=== PATIENT | male | born 1965 | race Caucasian/White ===

== ENCOUNTER 2023-05-08 09:25 | Emergency (ER) | payer OTHER, SELFPAY ==
[2023-05-08 09:26] VITALS: BP 154/88; PULSE 83; RESP 18; TEMP 36.1; O2SAT 98; BMI 29.7
--- NOTE | 2023-05-08 09:55 | EDS_ITS ---
HPI History of Present Illness Chief Complaint: Abd Pain Informant: patient Onset/Context/Timing Onset: Weeks Context: Gradual Onset Timing: Waxes and wanes Current Severity: Moderate Maximum Severity: Moderate Narrative Narrative: Under the left lower quadrant abdominal pain. Pain has been gradual in onset and waxing and waning for the past couple weeks. He is also been dealing with chronic back pain. In regards to his abdominal pain he points to the left lower quadrant. He has had some chills. He does report a slight change in his stool. No known history of diverticulitis, but also states he has never had a colonoscopy. [facility] Medical History (Updated 05/08/23 @ 14:[address] Shagufta Whitaker MD) Chronic back pain Hypertension Medical History no medical history Home Medications amoxicillin 875 mg-potassium clavulanate 125 mg tablet 1 tab PO Q12H #14 tabs 04/25/21 [Rx Last Taken Unknown] oxycodone-acetaminophen 5 mg-325 mg tablet (Percocet) 1 tab PO Q8H PRN pain 3 days #12 tabs 05/08/23 [Rx Last Taken Unknown] Allergy/AdvReac Type Severity Reaction Status Date / Time No Known Allergies Allergy Verified 05/08/23 09:25 Family History no significant family his Surgical History no surgical history Social History Smoking Status: Never smoker ROS ROS ED Constitutional Constitutional ED: Reports chills; Denies fever(s) Eyes Eyes: Denies change in vision or discharge from eye(s) ENT ENT ED: Denies discharge from eye(s), rhinorrhea or sore throat Cardiovascular Cardiovascular: Denies chest pain or palpitations Respiratory/Chest Respiratory/Chest: Denies cough or dyspnea Gastrointestinal Gastrointestinal: Reports abdominal pain; Denies diarrhea, nausea or vomiting Genitourinary Genitourinary ED: Denies difficulty urinating, dysuria or hematuria Musculoskeletal Musculoskeletal: Reports back pain; Denies extremity pain Integumentary Denies Abrasions or rash Neurologic Neurologic: Denies headache(s) or weakness Allergic/Immunologic Allergic/Immunologic ED: Denies lip swelling or urticaria EXAM Physical Exam Const Vital Signs: 05/08/23 09:26 05/08/23 13:25 Temperature 96.9 F L Temperature Source Temporal Pulse Rate 83 74 Respiratory Rate 18 15 Blood Pressure 154/88 H 148/97 H Blood Pressure Mean 110 114 Pulse Ox 98 98 Oxygen Delivery Method Room Air Room Air Positive well nourished and well developed General Appearance ED: well developed HEENT Reports moist mucous membranes Eyes EOMs intact bilaterally Chest Wall inspection of chest normal and palpation of chest normal Resp normal respiratory effort and clear to auscultation bilaterally Cardio regular rate and regular rhythm GI GI Narrative: Moderate tenderness in left lower quadrant. No guarding or rebound. Hypoactive but present bowel sounds are noted. Extremity normal to inspection Neuro oriented x3 and no sensory deficits noted Motor Exam: strength 5/5 throughout Psych mental status grossly normal Skin no rashes or lesions noted MDM MDM MDM Narrative Medical decision making narrative: Patient declines anything for pain at this time. He is given IV fluids. Labwork obtained to evaluate for leukocytosis, anemia, and electrolyte derangement. Urinalysis obtained to evaluate for infection/hematuria. I did review report from a noncontrast CT patient had performed in [place] a couple weeks ago. There is no evidence of renal stone noted. In light of this diverticulitis is higher on my differential list and we will do a CT scan with p.o. and IV contrast to further evaluate this. Lab Data Attestation: I reviewed the patient's lab results. Labs: Laboratory Results - last 24 hr 05/08/23 05/08/23 10:29 10:32 WBC 5.8 RBC 4.52 L Hgb 14.1 Hct 42.5 MCV 94.0 MCH 31.2 MCHC 33.2 RDW Std Deviation 44.0 H RDW Coeff of Gemma 12.9 Plt Count 234 MPV 8.8 Immature Gran % (Auto) 0.900 Neut % (Auto) 71.0 H Lymph % (Auto) 18.3 L Russell % (Auto) 6.9 Eos % (Auto) 2.6 Baso % (Auto) 0.3 Absolute Neuts (auto) 4.1 Absolute Lymphs (auto) 1.06 Nucleated RBC % 0 Sodium 137 Potassium 3.9 Chloride 103 Carbon Dioxide 30.0 Anion Gap 4 L BUN 22 H Creatinine 0.97 Estim Creat Clear Calc 82.27 Est GFR (MDRD) Af Amer 102 Est GFR (MDRD) Non-Af 85 BUN/Creatinine Ratio 22.6 H Glucose 109 H Calcium 9.2 Urine Color Yellow Urine Clarity Clear Urine pH 7.0 Ur Specific [place] 1.010 Urine Protein Negative Urine Glucose (UA) Normal Urine Ketones Negative Urine Occult Blood Negative Urine Nitrite Negative Urine Bilirubin Negative Urine Urobilinogen Normal Ur Leukocyte Esterase Negative Urine RBC 0 SEEN Urine WBC 0 SEEN Ur Squamous Epith Cells 0 SEEN Urine Bacteria 0 SEEN Urine Mucus 0 SEEN Radiography Diagnostic Testing: Clinical Impression(s) from Imaging Studies Abdomen/Pelvis CT 05/08/23 09:55 IMPRESSION: Scattered sigmoid diverticula. No evidence of diverticulitis. Mild degree of bladder wall thickening of the bladder is not completely distended at this time. Small right renal cyst. Fatty infiltration of the liver. Questionable tiny gallstones along the dependent portion of the gallbladder. Electronically Signed: Oj Isabel MD at 13:31 EDT , Treatment and Re-Evaluation :: Did request something for pain and was given morphine and Zofran followed by dose of Dilaudid and Zofran. CBC reveals a normal white count at 5.8 with a hemoglobin of 14.1. 71% neutrophils are noted. Chemistry studies are unremarkable with normal renal function. Urinalysis reveals no evidence of acute infection or hematuria. CT scan of the abdomen pelvis p.o. and IV contrast is obtained. Scattered sigmoid diverticula are noted with no evidence of diverticulitis. There is mild degree of bladder wall thickening but the bladder is not completely distended. There is a small left renal cyst. There is questionable tiny gallstones along the dependent portion of the gallbladder. Test results are discussed with the patient and family at bedside. At this time I do not have a definitive cause for his left lower quadrant pain. We discussed that this may be radicular from his back, although he states that Dr. Blackburn did not feel that it was related. At this time I can at least give him reassurance that there is no evidence of acute infection or mass in his abdomen causing this pain. He will follow-up on the for his MRI as scheduled. He will be given a short prescription for Percocet to help with pain at home. Discharge Plan Triage Chief Complaint: Abd Pain ED Provider: Whitaker,Shagufta Dx/Rx/DC Orders Clinical Impression: Abdominal pain Instructions: ED Abdominal Pain Unkn Cause Male... Prescriptions: New oxycodone-acetaminophen [Percocet] 5-325 mg tablet 1 tab PO Q8H PRN (Reason: pain) 3 Days Qty: 12 0RF No Action amoxicillin-pot clavulanate 875-125 mg tablet 1 tab PO Q12H Qty: 14 0RF Primary Care Provider: Care Physician,No Primary Referrals: Cortes Blackburn DO [Med Staff - Active Staff] - [facility] appointment Care Physician,No Primary [Primary Care Provider] - Disposition Disposition: Home, Self Care
--- NOTE | 2023-05-08 09:55 | CT_ITS ---
STUDY: CT ABDOMEN AND PELVIS WITH CONTRAST REASON FOR EXAM: Male, 57 years old. LLQ pain -- IV PO Contrast RADIATION DOSAGE (If Supplied By Facility): CTDIvol = ( 18.68 ) mGy, DLP = ( 1117.45 ) mGycm TECHNIQUE: Transaxial images were obtained from the dome of the diaphragm to the symphysis pubis with oral contrast. Oral and amp; IV Gastrografin and amp; 100mL Isovue-300 was administered. Sagittal and coronal images were reconstructed. Individualized dose optimization techniques were used for this CT. COMPARISON: None. FINDINGS: Mild increased linear markings at the lung bases slightly more prominent on the right side suggestive of bibasilar atelectasis. Coronary calcification. There is decreased attenuation of the liver consistent with steatosis. Possible tiny gallstones along the dependent portion of the gallbladder lumen. Normal spleen. Normal pancreas. Normal bilateral adrenal glands. Normal right kidney. There is a 1.8 cm cyst in the posterior midportion of the left kidney. Normal visualized stomach. Normal small intestine. There are scattered colonic diverticula consistent with diverticulosis. The appendix is visualized and appears normal. Normal abdominal aorta. Normal inferior vena cava. Normal retroperitoneum. Mild degree of diffuse bladder wall thickening although the bladder is not completely distended. The prostate measures 4 cm x 4.6 cm. This causes indentation at the bladder base. There is a small umbilical hernia containing fat. Normal osseous structures. CT/Abdomen/Pelvis WITH Contrast IMPRESSION: Scattered sigmoid diverticula. No evidence of diverticulitis. Mild degree of bladder wall thickening of the bladder is not completely distended at this time. Small right renal cyst. Fatty infiltration of the liver. Questionable tiny gallstones along the dependent portion of the gallbladder. Electronically Signed: Oj Isabel MD at 13:31 EDT ,
[2023-05-08] MEDS: 0.9% Normal Saline (1000mL) 1,000 ML 150 ML IV (10:28)
[2023-05-08] MEDS: Ondansetron 4 MG/2 ML Vial IV ×2 (10:29→13:22)
[2023-05-08 10:35] LABS: Bacteria 0 SEEN /hpf (None Seen); Mucous, Urine 0 SEEN /hpf (<or=2+); Red Blood Cells-Urine 0 SEEN /hpf (0-5); Squamous Epithelial Cells - UA 0 SEEN /hpf (0-5); White Blood Cells 0 SEEN /hpf (0-5)
[2023-05-08 10:37] LABS: Absolute Lymphocyte Count 1.06 X10^3/uL (0.83-4.51); Absolute Neutrophil Count 4.1 X10^3/uL (2.0-7.7); Basophil# 0.02 X10^3/uL; Basophil% 0.3 % (0-1); Eosinophil# 0.15 X10^3/uL; Eosinophils% 2.6 % (0-5); Hematocrit 42.5 % (40-54); Hemoglobin 14.1 g/dL (13.0-16.5); Lymphocyte # 1.06 X10^3/ul (0.83-4.51); Lymphocyte % 18.3 % (19-41); Mean Corp Hgb Conc 33.2 g/dL (32-36); Mean Corpuscular Hgb 31.2 pg (27.0-32.0); Mean Platelet Vol. 8.8 fl (6.2-12.0); Monocyte% 6.9 % (0-10); NRBC Flagged by Analyzer 0 % (0-5); Platelet Count 234 K/mm3 (150-450); RBC Distribution Width CV 12.9 % (11.6-14.6); Red Blood Count 4.52 M/mm3 (4.6-6.2); White Blood Count 5.8 K/mm3 (4.4-11.0)
[2023-05-08 10:38] LABS: Color, Urine Yellow (Yellow); Glucose, Dipstick Normal (Normal); Ketone-Dipstick Negative (Negative); Leukocyte Esterase-Dipstick Negative /ul (Negative); Nitrite-Dipstick Negative (Negative); Occult Blood-Urine Negative /ul (Negative); Protein-Dipstick Negative (Negative); Urine Bilirubin Dipstick Negative (Negative); Urine Clarity Clear (Clear); Urine Urobilinogen Normal (Normal)
[2023-05-08] MEDS: Morphine 4 MG/ML Syringe IV (10:53)
[2023-05-08 10:58] LABS: Anion Gap 4 (5-15); BUN 22 mg/dL (7-18); BUN/Creat Ratio 22.6 RATIO (10-20); Calcium,Total 9.2 mg/dL (8.5-10.1); Chloride 103 mmol/L (98-107); Creatinine, Serum 0.97 mg/dL (0.70-1.30); EST Glomerular Filtration Rate 85 mL/min (>60); Est Glom Filt Rate - Afr Amer 102 mL/min (>60); Estimated Creatinine Clearance 82.27 ml/min; Glucose 109 mg/dL (74-106); Potassium 3.9 mmol/L (3.5-5.1); Sodium Level 137 mmol/L (136-145)
[2023-05-08] MEDS: HYDROmorphone 0.5 MG/0.5 ML SYRINGE IV (13:22)
[2023-05-08 13:25] VITALS: BP 148/97; PULSE 74; RESP 15; O2SAT 98
[2023-05-08 14:20] VITALS: BP 149/98; PULSE 75; RESP 16; O2SAT 98
== END 2023-05-08 14:23 | disposition home or self-care (01) ==
PROVIDERS: Emergency Provider Emergency Medicine; Visit Provider Emergency Medicine
DX: R10.32 Left lower quadrant pain (principal); I10 Essential (primary) hypertension
CPT/HCPCS: 74177; 80048; 81001; 85025; 96361; 96374; 96375; 96376; 99283; J7030; Q9967; A4216; J2405

== ENCOUNTER 2023-05-24 13:55 | Emergency (ER) | payer SELFPAY ==
[2023-05-24 13:56] VITALS: BP 116/89; PULSE 99; RESP 18; TEMP 36.8; O2SAT 99; BMI 28.9
--- NOTE | 2023-05-24 14:25 | CT_ITS ---
STUDY: CT CHEST, ABDOMEN T PELVIS WITH CONTRAST REASON FOR EXAM: Male, 57 years old. Abdominal pain RADIATION DOSAGE (If Supplied By Facility): CTDIvol = ( 20.95 ) mGy, DLP = ( 1842.32 ) mGycm TECHNIQUE: Transaxial imaging was performed following intravenous administration of IV 100mL Isovue-370. Individualized dose optimization techniques were used for this CT. COMPARISON: Prior study dated: 05/08/2023. FINDINGS: CHEST Hypoventilatory changes in lung bases. No pulmonary infiltrates. The trachea and mainstem bronchi are unremarkable. There is no demonstrated pleural abnormality. Normal heart and pericardium. Prominent nodes in the aortopulmonic window and subcarinal region. Normal hilar regions. No evidence of pulmonary embolism. Normal aorta arch and descending thoracic aorta. Unremarkable osseous structures. ABDOMEN Hepatic steatosis. No focal lesion is seen. There again are probably gallstones. No biliary dilatation is seen. Splenomegaly. The spleen measures about 14.5 cm in length. Enhancing lesion in the posterior aspect of the spleen could be due to hemangioma. Normal pancreas. Normal bilateral adrenal glands. 1.6 cm simple cyst in the left kidney for which no further follow-up exam is needed. No evidence of hydronephrosis. Small hiatal hernia. Significant motion artifacts limiting the examination. Thickened dilated duodenum and proximal jejunal loops without evidence of bowel obstruction. The distal ileal loops appear unremarkable. Fecal retention. [Diverticulosis without evidence of acute diverticulitis. There is non-visualization of the appendix. Tortuosity of the abdominal aorta without evidence of aneurysm. Normal inferior vena cava. Normal retroperitoneum. There is a small umbilical hernia containing fat. No demonstrated acute osseous changes. PELVIS Normal urinary bladder. There is no pelvic fluid. There is no pelvic lymphadenopathy or mass lesion. Prominent prostate. Normal visualized pelvic arteries. CT/CT Chest, Abd, Pel w/Contrast IMPRESSION: 1. Mediastinal adenopathy could be reactive however the etiology is undetermined. 2. Dilated and thickened duodenal and proximal jejunal loops concerning for duodenitis and enteritis. Early obstruction is less likely. 3. Hepatic steatosis. 4. Mild splenomegaly and enhancing splenic lesion could be due to hemangioma. 5. Prominent prostate. Electronically Signed: Paolo Delgado MD at 15:59 EDT ,
--- NOTE | 2023-05-24 14:25 | CT_ITS ---
INDICATION: confusion EXAMINATION: CT BRAIN - CT Head or Brain W/O Contrast Injection TECHNIQUE: Multiple axial images were obtained of the head without intravenous contrast. A radiation dose optimization technique was used for this scan. IV Contrast dosage and agent: None. RADIATION DOSAGE (If Supplied By Facility): CTDIvol = ( 44.99 ) mGy, DLP = ( 796.11 ) mGycm COMPARISON: No relevant prior comparison study available FINDINGS: BRAIN PARENCHYMA: No intra- or extra-axial hemorrhage. No evidence of acute infarct. No intracranial mass or mass effect. There is preservation of the royal/white matter interface. Posterior fossa structures are unremarkable. CSF SPACES: Appropriate for age. No hydrocephalus. Basal cisterns are patent. CALVARIUM, SKULL BASE, PARANASAL SINUSES AND MASTOID AIR CELLS: Clear. No discrete lytic or blastic abnormalities. ORBITS: Both globes, extraocular muscles, optic nerves and retrobulbar fat appear unremarkable. ASPECTS Score for Acute Strokes: 10 CT/Brain/Head without Contrast IMPRESSION: Negative Brain CT without contrast. Electronically Signed: Paolo Delgado MD at 15:43 EDT ,
--- NOTE | 2023-05-24 14:25 | EKG12_ITS ---
Test Reason : ABD PAIN Blood Pressure : / mmHG Vent. Rate : 088 BPM Atrial Rate : 088 BPM P-R Int : 264 ms QRS Dur : 088 ms QT Int : 350 ms P-R-T Axes : 058 -03 026 degrees QTc Int : 423 ms Sinus rhythm with 1st degree A-V block Possible Left atrial enlargement Borderline ECG Confirmed by MICHELLE MAGALLON, EMILEE ([id number]), newspaper editor managing GURDEEP FALL ([id number]) on 05/26/2023 2:27:12 PM Referred By: Confirmed By:EMILEE MARTINEZ MD
--- NOTE | 2023-05-24 14:30 | NURSING ---
NO OLD EKGS
[2023-05-24 14:35] VITALS: BP 116/66; PULSE 88; RESP 26; O2SAT 96
[2023-05-24] MEDS: 0.9% Normal Saline (1000mL) 1,000 ML 1000 ML IV ×2 (14:51→15:42)
--- NOTE | 2023-05-24 14:52 | EX.ED.DYSGE1 ---
HPI History of Present Illness Chief Complaint: Abd Pain Informant: patient and spouse/S.O. Narrative Narrative: 57-year-old male presenting to the emergency department presenting to the emergency room with abdominal pain. Patient describes a band of numbness across his lower abdomen into the back. Is been present for about 5 weeks and is constant. He states that he been in the emergency department twice and saw a spine surgeon and had an MRI of his back that was negative. He states yesterday the spine surgeon told him that it was not coming from the back. He states that he continued to have symptoms and was supposed to see a primary care doctor but cannot get into the doctor until middle of July. he noted that the right side of his face was not working as well as the left. He states is difficult for him to use a straw. He cannot close the right normally. states he seems to be acting strangely at times very out of it. He notes that he has developed diarrhea over the past several days. No fevers. notes some weight loss. He notes a slight cough. tells me that his symptoms are progressing from the abdomen cephalad. She states that he complains of pain when you push on his abdomen. I do mention that this would be different than numbness and him having difficulty understanding what they are meaning by numbness when they are discussing pain. I tried to differentiate using variety different symptomology like paresthesias. notes decreased p.o. intake and he states that he has been urinating less and feels dehydrated. He had a rash behind his right knee which the states looks like staph. There is no pustules it was red with a white line in the center of it. [facility] Medical History Chronic back pain Hypertension Medical History no medical history Home Medications prednisone 20 mg tablet 60 mg (3 x 20 mg) PO DAILY #15 TABLETS 05/24/23 [Rx Last Taken Unknown] valacyclovir 1 gram tablet 1,000 mg PO TID 7 days #21 tabs 05/24/23 [Rx Last Taken Unknown] Allergy/AdvReac Type Severity Reaction Status Date / Time No Known Allergies Allergy Verified 05/24/23 13:56 Surgical History no surgical history Social History Smoking Status: Never smoker ROS ROS ED Constitutional Constitutional ED: Denies chills, fever(s) or weight loss Eyes Eyes: Reports other Details: Eye dryness ; Denies blurry vision, change in vision or diplopia ENT ENT ED: Reports other Details: Right facial droop decreased sensation ; Denies ear pain, rhinorrhea or sore throat Cardiovascular Cardiovascular: Denies chest pain, orthopnea, palpitations or racing heartbeat Respiratory/Chest Respiratory/Chest: Denies cough, dyspnea or orthopnea Gastrointestinal Gastrointestinal: Reports abdominal pain; Denies diarrhea, nausea or vomiting Genitourinary Genitourinary ED: Reports other Details: Decreased urination ; Denies dysuria, hematuria or urinary frequency Musculoskeletal Musculoskeletal: Reports back pain; Denies arthralgias, myalgias or neck pain Integumentary Reports rash; Denies abscess Neurologic Neurologic: Reports paresthesias; Denies headache(s) or weakness Psychiatric Psychiatric: Denies anxiety, depression, suicidal ideation or suicidal thoughts Endocrine Endocrinology: Denies polydipsia, polyphagia or polyuria Allergic/Immunologic Allergic/Immunologic ED: Denies mouth swelling, tongue swelling or urticaria EXAM Physical Exam Const Vital Signs: 05/24/23 16:30 05/24/23 17:27 Pulse Rate 78 86 Respiratory Rate 18 16 Blood Pressure 116/92 H 118/85 H Blood Pressure Mean 100 96 Pulse Ox 97 98 Oxygen Delivery Method Room Air Positive well nourished and well developed General Appearance ED: well developed HEENT Reports normocephalic, head/scalp atraumatic and dry mucous membranes Mouth ED: Yes dry mucous membranes Mouth: dry mucous membranes Eyes PERRL and EOMs intact bilaterally Neck no lymphadenopathy, supple and no JVD Resp normal respiratory effort and clear to auscultation bilaterally Cardio regular rate, regular rhythm and no murmurs GI normal to inspection, nondistended, normoactive bowel sounds and non-tender Palpation: soft Back/Spine no CVA tenderness and normal ROM Back/Spine Narrative: There appears to be a wound just on the right side of the lower thoracic upper lumbar spine that is healing and does not show overt signs of secondary infection. Below that appears to be some area of ecchymosis. states that that has been present for several weeks. This was present when he reportedly had an MRI. Extremity normal to inspection General Extremety ED: Negative for edema General Extremity: Negative for edema Neuro oriented x3 and No no sensory deficits noted Neuro Narrative: There is right-sided facial droop. Inability to close the right eyelids and inability to raise the eye brow. Sensorium / Orientation: alert Psych mental status grossly normal Mood & Affect: Negative for depressed or tearful Skin Skin Narrative: See back examination. I do not appreciate any other lesions or rashes/bruising. MDM MDM MDM Narrative Medical decision making narrative: Labs and CT were ordered. Care of the patient will be checked out to the oncoming physician's physician. 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 I have advised that I am not confident we will find an exact etiology for his symptoms today and that follow-up is important. White count is normal with a normal hemoglobin. Lactic acid normal 0.9. BMP with a glucose of 94. Anion gap of 3 creatinine 1.08 with a BUN of 23. Urine is is negative for overt infection. Negative counts CT of the brain was negative. CT of the chest abdomen pelvis was obtained. There is noted distal adenopathy. Etiology undetermined. Importance this case at this time is unknown. Please see radiology read of the abdomen. Lab Data Attestation: I reviewed the patient's lab results. Labs: Laboratory Results - last 24 hr 05/24/23 05/24/23 05/24/23 14:40 14:44 15:44 PT 13.9 INR 1.1 APTT 33.4 Sodium 135 L Potassium 4.1 Chloride 104 Carbon Dioxide 28.0 Anion Gap 3 L BUN 23 H Creatinine 1.08 Estim Creat Clear Calc 73.89 Est GFR (MDRD) Af Amer 91 Est GFR (MDRD) Non-Af 75 BUN/Creatinine Ratio 21.3 H Glucose 94 Lactic Acid 0.9 Calcium 9.1 Magnesium 2.5 Total Bilirubin 0.50 Direct Bilirubin 0.14 AST 27 ALT 70 H Alkaline Phosphatase 78 Troponin I High Sens 7 Total Protein 7.8 Albumin 3.0 L Globulin 4.8 H Lipase 93 H Urine Color Yellow Urine Clarity Sl. Cloudy Urine pH 6.5 Ur Specific [place] 1.005 Urine Protein 15 H Urine Glucose (UA) Normal Urine Ketones Negative Urine Occult Blood Negative Urine Nitrite Negative Urine Bilirubin Negative Urine Urobilinogen Normal Ur Leukocyte Esterase Negative Urine RBC 0 SEEN Urine WBC 0 SEEN Ur Squamous Epith Cells 0 SEEN Urine Bacteria 0 SEEN Urine Mucus 0 SEEN Radiography Diagnostic Testing: Clinical Impression(s) from Imaging Studies Brain CT 05/24/23 14:25 IMPRESSION: Negative Brain CT without contrast. Electronically Signed: Paolo Delgado MD at 15:43 EDT , Chest/Abdomen/Pelvis CT 05/24/23 14:25 IMPRESSION: 1. Mediastinal adenopathy could be reactive however the etiology is undetermined. 2. Dilated and thickened duodenal and proximal jejunal loops concerning for duodenitis and enteritis. Early obstruction is less likely. 3. Hepatic steatosis. 4. Mild splenomegaly and enhancing splenic lesion could be due to hemangioma. 5. Prominent prostate. Electronically Signed: Paolo Delgado MD at 15:59 EDT , EKG Initial EKG: Attestation: I personally reviewed and interpreted this EKG as follows: Comments: Sinus rhythm with a first-degree AV block and a ventricular rate of 88 bpm Discharge Plan Triage Chief Complaint: Abd Pain ED Provider: Danilo Ludwig Dx/Rx/DC Orders Clinical Impression: Booth's palsy, Abdominal pain, Enteritis, LAD (lymphadenopathy), mediastinal, Splenomegaly, Hemangioma of spleen Instructions: Abdominal Pain, Dehydration, Lymphadenopathy, ED Booth's Palsy Prescriptions: New valacyclovir 1 gram tablet 1,000 mg PO TID 7 Days Qty: 21 0RF prednisone 20 mg tablet 60 mg PO DAILY Qty: 15 0RF Other Ambulatory Orders: Fast Pass: Oncology Referral [facility] (Routine) Facility: [facility] - Location: [facility] Ordered By: Dr. Bandar Wolff Primary Care Provider: Care Physician,No Primary Referrals: Care Physician,No Primary [Primary Care Provider] - Disposition Disposition: Home, Self Care Discharge Date/Time: 05/24/23 17:34
[2023-05-24 15:00] LABS: Absolute Lymphocyte Count 1.02 X10^3/uL (0.83-4.51); Basophil# 0.03 X10^3/uL; Basophil% 0.4 % (0-1); Eosinophil# 0.14 X10^3/uL; Eosinophils% 2.1 % (0-5); Hematocrit 43.6 % (40-54); Hemoglobin 14.8 g/dL (13.0-16.5); Lymphocyte # 1.02 X10^3/ul (0.83-4.51); Lymphocyte % 15.1 % (19-41); Mean Corp Hgb Conc 33.9 g/dL (32-36); Mean Corpuscular Volume 91.2 fL (80-94); Mean Platelet Vol. 8.7 fl (6.2-12.0); Monocyte# 0.55 X10^3/uL; Monocyte% 8.1 % (0-10); NRBC Flagged by Analyzer 0 % (0-5); Platelet Count 331 K/mm3 (150-450); RBC Distribution Width SD 40.5 fl (35.1-43.9); Red Blood Count 4.78 M/mm3 (4.6-6.2); White Blood Count 6.8 K/mm3 (4.4-11.0)
[2023-05-24 15:11] LABS: International Normalized Ratio 1.1; Prothrombin Time (Protime)PT. 13.9 SECONDS (11.7-14.9)
[2023-05-24 15:12] LABS: Partial Thromboplast Time 33.4 Seconds (24.1-36.2)
[2023-05-24 15:28] LABS: Lactic Acid 0.9 mmol/L (0.4-1.9)
[2023-05-24 15:31] LABS: AST(SGOT) 27 U/L (15-37); Alanine Aminotransfer ALT/SGPT 70 U/L (16-61); Alkaline Phosphatase 78 U/L (45-117); Anion Gap 3 (5-15); BUN 23 mg/dL (7-18); BUN/Creat Ratio 21.3 RATIO (10-20); Bilirubin, Direct 0.14 mg/dL (0.00-0.30); Calcium,Total 9.1 mg/dL (8.5-10.1); Chloride 104 mmol/L (98-107); Creatinine, Serum 1.08 mg/dL (0.70-1.30); EST Glomerular Filtration Rate 75 mL/min (>60); Est Glom Filt Rate - Afr Amer 91 mL/min (>60); Estimated Creatinine Clearance 73.89 ml/min; Globulin 4.8 g/dL (2.2-4.2); Glucose 94 mg/dL (74-106); Lipase 93 U/L (13-75); Magnesium 2.5 mg/dL (1.6-2.6); Potassium 4.1 mmol/L (3.5-5.1); Protein, Total 7.8 g/dL (6.4-8.2); Sodium Level 135 mmol/L (136-145); Troponin-I HS 7 pg/mL (3.0-78.0)
[2023-05-24 15:48] LABS: Bacteria 0 SEEN /hpf (None Seen); Mucous, Urine 0 SEEN /hpf (<or=2+); Red Blood Cells-Urine 0 SEEN /hpf (0-5); Squamous Epithelial Cells - UA 0 SEEN /hpf (0-5); White Blood Cells 0 SEEN /hpf (0-5)
[2023-05-24 16:00] LABS: Color, Urine Yellow (Yellow); Glucose, Dipstick Normal (Normal); Ketone-Dipstick Negative (Negative); Leukocyte Esterase-Dipstick Negative /ul (Negative); Nitrite-Dipstick Negative (Negative); Occult Blood-Urine Negative /ul (Negative); Protein-Dipstick 15 mg/dl (Negative); Specific Gravity, Urine 1.005 (1.002-1.030); Urine Bilirubin Dipstick Negative (Negative); Urine Clarity Sl. Cloudy (Clear); Urine Urobilinogen Normal (Normal); Urine pH 6.5 (5.0 - 8.0)
[2023-05-24 16:30] VITALS: BP 116/92; PULSE 78; RESP 18; O2SAT 97
[2023-05-24 17:27] VITALS: BP 118/85; PULSE 86; RESP 16; O2SAT 98
== END 2023-05-24 17:34 | disposition home or self-care (01) ==
PROVIDERS: Emergency Provider Emergency Medicine; Visit Provider Emergency Medicine
DX: G51.0 Bell's palsy (principal); K52.9 Noninfective gastroenteritis and colitis, unspecified; R59.0 Localized enlarged lymph nodes; I10 Essential (primary) hypertension; D18.03 Hemangioma of intra-abdominal structures; R16.1 Splenomegaly, not elsewhere classified; R10.9 Unspecified abdominal pain
CPT/HCPCS: 36415; 70450; 71260; 74177; 80048; 80076; 81001; 83605; 83690; 83735; 84484; 85025; 85610; 85730; 87040; 93005; 96360; 96361; 99283; J7030; Q9967; A4216

== ENCOUNTER → 2023-06-27 | Outpatient (CLI) | payer SELFPAY | END | disposition home or self-care (01) | LOC: LABSPEC 11:49 | PROVIDERS: Visit Provider Surgery | DX: R19.7 Diarrhea, unspecified (principal) | CPT/HCPCS: 82274; 83630; 87177; 87209; 87493; 87506 ==

== ENCOUNTER 2023-07-01 09:11 | Day surgery (SDC) | payer SELFPAY ==
--- NOTE | 2023-06-30 10:45 | COLBX_PTH ---
PATIENT: KADEN RODRIGUEZ LOC: EN U#:[id number] AGE/SX: 57/M ROOM: RE07/01/[address]: Dr. Tracey López MD : 1965 BED: DIS: 07/01/2023 SPEC #: [id number] RECD: 07/01/23 13:40 STATUS: BETTY MIGUEL #: [id number] KEREN: 06/30/23 10:[address]: Tracey López DEPT: SURGICAL PATHOLOGY RECD BY: Tory Washington ENTERED: 07/01/23 13:40 SP TYPE: COLON BX OTHR DR: Dr. Khushi Bauer MD Tissues: A - Gastric mucous membrane B - Esophageal mucous membrane C - Cecum, NOS D - COLON BIOPSY Procedures: Special Stain Group II Surgery Specimen Level IV Alcian Blue/PAS (control) HEADER OPERATION: Colonoscopy, EGD, biopsy PRE-OP DIAGNOSIS: Diarrhea, weight loss, nausea, vomiting, LUQ and LLQ pain TISSUE SUBMITTED: A - Gastric antrum biopsy, H. pylori and path, B - Gastroesophageal junction biopsy, C - Cecum polyp biopsy, D - Random colon biopsies MICROSCOPIC DIAGNOSIS A. Gastric antrum, biopsy: Chronic gastritis. See comment. B. Gastroesophageal junction, biopsy: Mild chronic inflammation. Focal changes of reflux. No evidence of goblet cell metaplasia. See comment. C. Cecal polyp, biopsy: Fragments of tubular adenoma. D. Colon, random biopsy: No pathologic change. AM:gladis 07/02/2023 COMMENT A. The results of immunohistochemistry for Helicobacter pylori will be reported separately ([id number]). B. Alcian blue/PAS stain with matched control supports the above diagnosis. MICROSCOPIC DESCRIPTION Slides are reviewed. GROSS DESCRIPTION A - Received in fixative is one container labeled with the patient's name and designated gastric antrum. The specimen consists of one irregular fragment of light russell soft tissue that measures 0.6 x 0.3 x 0.1 cm. The specimen is totally submitted in one cassette. B - Received in fixative is one container labeled with the patient's name and designated GE junction. The specimen consists of one irregular fragment of light russell soft tissue that measures 0.5 x 0.3 x 0.1 cm. The specimen is totally submitted in one cassette. C - Received in fixative is one container labeled with the patient's name and designated cecal polyp. The specimen consists of one irregular fragment of light russell soft tissue that measures 0.5 x 0.2 x 0.1 cm. The specimen is totally submitted in one cassette. D - Received in fixative is one container labeled with the patient's name and designated random colon. The specimen consists of multiple irregular fragments of light russell soft tissue that in aggregate measure 1.0 x 0.5 x 0.1 cm. The specimen is totally submitted in one cassette. / AM:gladis 07/01/2023 TC:3 CPT: 91663 x4, 93294
[2023-07-01] VITALS (8 sets, daily range): BP systolic 103–163; BP diastolic 72–94; PULSE 93–108; RESP 16–18; TEMP 36.4–36.5; O2SAT 95–100; BMI 26.1
--- NOTE | 2023-07-01 09:40 | PCM.HP.BLA ---
History and Physical Date of Admission: 07/01/23 Date of Service: 06/26/23 MR#: [id number] Acct: [id number] Name: KADEN RODRIGUEZ Rep #: [id number] : 1965 Provider: Dr. Tracey López MD Age/Sex: 57/M Location: [facility] Status: Signed Intake Vital Signs 06/10/2310:45 06/26/2310:15 Height 5 ft 8 in 5 ft 8 in Weight: 178 lb BMI 27.0 BP 126/82 H Blood Pressure Location Rt brachial Position Sitting Respiration 17 Pulse 118 H Pulse Source Monitor Temp 97.6 F L Temp Source Temporal Pulse Oximetry (%) 96 Oxygen Delivery Method room air Intake Visit Reasons: COLONOSCOPY Chief Complaint: colonoscopy Is patient in pain?: Yes Allergies No Known Allergies Allergy (Verified 06/26/23 10:19) Medications ibuprofen 200 mg tablet 200 mg PO Q6H PRN pain 06/03/23 [History Confirmed 06/26/23] pantoprazole 40 mg tablet,delayed release 40 mg PO DAILY #30 tabs 06/26/23 [Rx Confirmed 06/26/23] PFSH Medical History (Updated 06/26/23 @ 15:47 by Shania Duncan) Chronic back pain Diarrhea History of steroid therapy Hypertension Lesion of spleen Low back pain Non-smoker Weight loss, abnormal Surgical History History of appendectomy Family History Other Brain cancer Breast cancer Cancer of kidney Colon cancer Thyroid cancer Social History Smoking Status: Never smoker alcohol intake: never substance use type: other details: CBD/THC Gummies HPI HPI HPI: 7-year-old male presents for screening colonoscopy, change in bowel habits. Patient states that for the last about the last month he has been having what he calls constipation however when asking further he has been having liquid stools the entire time as sometimes he may not go for a day or so but he it is never formed. Patient denies any blood. Patient states he goes about every other day when he takes his laxative?Dulcolax as needed. Patient sister was diagnosed with I think a rectal cancer at age 46 currently has a colostomy did go through chemo and radiation per patient's mom who we asked via the phone. Patient states initially his pain started with more back pain patient did see Dr. Blackburn said there is only some arthritis. Patient does complain of some constant bandlike tightness around his abdomen it can be better with sitting and is worse with walking. Patient states that he is also feels like he has less urine output. Patient has also been eating less since he lost about 30 pounds last month as he has not really been eating his been nauseous daily and occasionally having vomiting. Patient does have a PCP appoint with Dr. Almonte on July 07 as he currently does not have a PCP. Patient states he does have more abdominal pain more so on the left side. ROS General General: Yes weight change and fatigue; No appetite, colon cancer or breast cancer HEENT HEENT: No difficulty swallowing, eye injury, eye surgery, swollen glands or hoarseness Endo Endocrine: No thyroid disease, diabetes mellitus, thyroid cancer, Hair loss, heat intolerance or cold intolerance Skin Skin: No rash or changing moles Musc Musculoskeletal: Yes back problems and arthritis; No rheumatoid arthritis, gout or joint pain Cardio Cardiovascular: No murmur, pacemaker, heart disease, atrial fibrillation, high blood pressure, heart attack, heart stent, palpitations, shortness of breat with exertion or chest pain Psych Psychiatric: No depression, anxiety or hearing voices Resp Respiratory: No shortness of breath, No sleep apnea, No cough, No COPD, No asthma, No emphysema and No wheezing Gastro Gastrointestinal: Yes abdominal pain, Yes nausea or vomiting, Yes diarrhea, Yes constipation, No blood in stool, No acid reflux, No hemorrhoids, No ulcers, No gallbladder problem and No black,tarry stools Karthik Hematologic: No blood thinners, No blood disorders, No bleeding, No anemia and No blood clots Neuro Neurologic: Yes numbness and Yes tingling Exam Const General: cooperative, healthy appearing, comfortable and no acute distress [facility] Head: normocephalic and atraumatic Neck Neck: supple Resp Effort & Inspection: normal respiratory effort Cardio Rate: regular rate GI Inspection: non-distended Palpation: soft, no hernias and tender (Mildly tender left upper quadrant left lower quadrant, no peritoneal signs) Skin General: no rashes or lesions noted Neuro General: CN's II-XI intact bilaterally Extrem General: normal to inspection Psych Mental Status: mental status grossly normal Attitude: cooperative Assessment and Plan Assessment and Plan (1) Diarrhea: Status: Acute (2) Weight loss, non-intentional: Status: Acute (3) Nausea & vomiting: Status: Acute (4) LUQ pain: Status: Acute (5) LLQ pain: Status: Acute Orders: Orders CDIFF (PCR) Today R19.7 - Diarrhea, unspecified Dr. Tracey López MD Ova and Parasites 8623 Today R19.7 - Diarrhea, unspecified Dr. Tracey López MD Stool Occult Blood iFOB Today R19.7 - Diarrhea, unspecified Dr. Tracey López MD ENTERIC PATHOGEN PANEL STOOL Today R19.7 - Diarrhea, unspecified Dr. Tracey López MD Stool Lactoferrin/WBC Today R19.7 - Diarrhea, unspecified Dr. Tracey López MD Colonoscopy 07/01/23 Patricia BURKS PA-C EGD 07/01/23 Patricia BURKS PA-C Medications: New pantoprazole 40 mg PO DAILY [address] Tracey López MD Plan Did review patient's CT abdomen pelvis did not see any obvious cause of his pain on CAT scan. Patient states he has been having diarrhea daily we will plan to get stool studies. Patient is also having nausea daily and occasional vomiting we will also plan to treat for gastritis with some Protonix prior to endoscopy. I have discussed the above with the patient. I have offered the patient esophagogastroduodenoscopy and colonoscopy for evaluation. I have explained the risks/benefits of the procedure and described the procedure. I have discussed the risks with the patient, including but not limited to: infection, bleeding, perforation of the GI tract requiring emergency surgery, inability to complete the procedure, injury to any internal organs, complications of anesthesia, etc. - the patient understands and agrees to proceed. I have answered all the patient's questions to the patient's satisfaction and the patient has no further questions. The patient has been given instructions for the colon cleansing preparation. 1 day of clears, MiraLAX Dulcolax split prep. Tracey López M.D. Pager: [phone] [facility] [address] [place] [address], [facility], [address] [place] [address] Office: [phone] Patient Instructions: You can take over the counter famotidine 20mg along with your protonix as needed. Coding Level of Care Code Off vis,new,level 4 Diagnoses Diarrhea R19.7 Weight loss, non-intentional R63.4 Nausea & vomiting R11.2 LUQ pain R10.12 LLQ pain R10.32 06/26/23 1636 <Electronically signed by Tracey López MD> Date Tracey López MD
[2023-07-01] MEDS: Lactated Ringers 1,000 ML 15 ML IV (09:55)
--- NOTE | 2023-07-01 10:56 | OP.EGD_ITS ---
Patient Name: Nitin Pierre Procedure Date: 07/01/2023 10:15 AM Date of : 1965 Age: 57 Procedure: Upper GI endoscopy Indications: Heartburn, Nausea with vomiting, Weight loss Providers: Tracey López MD Medicines: Monitored Anesthesia Care Patient Profile: This is a 57 year old male. Complications: No immediate complications. Procedure: Pre-Anesthesia Assessment: - Prior to the procedure, a History and Physical was performed, and patient medications and allergies were reviewed. The patient's tolerance of previous anesthesia was also reviewed. The risks and benefits of the procedure and the sedation options and risks were discussed with the patient. All questions were answered, and informed consent was obtained. Prior Anticoagulants: The patient has taken no anticoagulant or antiplatelet agents. ASA Grade Assessment: Per anesthesia. After reviewing the risks and benefits, the patient was deemed in satisfactory condition to undergo the procedure. After obtaining informed consent, the endoscope was passed under direct vision. Throughout the procedure, the patient's blood pressure, pulse, and oxygen saturations were monitored continuously. The Colonoscope was introduced through the mouth, and advanced to the second part of duodenum. The upper GI endoscopy was accomplished without difficulty. The patient tolerated the procedure well. Scope In: 10:24:35 AM Scope Out: 10:29:49 AM Total Procedure Duration Time 0 hours 5 minutes 14 seconds Findings: The Z-line was irregular and was found 40 cm from the incisors. Biopsies were taken with a cold forceps for histology. Mildly erythematous mucosa without active bleeding and with no stigmata of bleeding was found in the duodenal bulb. The second portion of the duodenum was normal. Striped mildly erythematous mucosa without bleeding was found in the gastric antrum. Biopsies were taken with a cold forceps for histology. Biopsies were taken with a cold forceps for Helicobacter pylori cultures. Impression: - Z-line irregular, 40 cm from the incisors. Biopsied. - Erythematous duodenopathy. - Normal second portion of the duodenum. - Erythematous mucosa in the antrum. Biopsied. Recommendation: - Await pathology results. - Discharge patient to home. - Resume previous diet. - Continue present medications. - Use sucralfate 1 gram PO TID for 1 week. Procedure Code(s): --- Professional --- 62533, Esophagogastroduodenoscopy, flexible, transoral; with biopsy, single or multiple Diagnosis Code(s): --- Professional --- K22.89, Other specified disease of esophagus K31.89, Other diseases of stomach and duodenum R12, Heartburn R11.2, Nausea with vomiting, unspecified R63.4, Abnormal weight loss CPT copyright 2021 [employer]. All rights reserved. The codes documented in this report are preliminary and upon medical biller coder review may be revised to meet current compliance requirements. MD Tracey Martins MD 07/01/2023 10:55:37 AM This report has been signed electronically. Number of Addenda: 0 Note Initiated On: 07/01/2023 10:15 AM
--- NOTE | 2023-07-01 10:56 | OP.CCLET_ITS ---
07/01/2023 No Primary Care Physician Re : Upper GI endoscopy procedure for Nitin Pierre Dear Care Physician This procedure was performed on Saturday, July 01, 2023. My impressions and recommendations are as follows: Impressions : - Z-line irregular, 40 cm from the incisors. Biopsied. - Erythematous duodenopathy. - Normal second portion of the duodenum. - Erythematous mucosa in the antrum. Biopsied. Recommendations : - Await pathology results. - Discharge patient to home. - Resume previous diet. - Continue present medications. - Use sucralfate 1 gram PO TID for 1 week. My findings are described in the full procedure note, which is enclosed. If I can be of further assistance, please feel free to contact me at Doctor phone number(s): , Work: . Sincerely, MD Tracey Martins MD 07/01/2023 10:55:37 AM This report has been signed electronically.
--- NOTE | 2023-07-01 11:03 | OP.COLON_ITS ---
Patient Name: Nitin Pierre Procedure Date: 07/01/2023 10:29 AM Date of : 1965 Age: 57 Procedure: Colonoscopy Indications: Generalized abdominal pain, Chronic diarrhea, Weight loss Providers: Tracey López MD Medicines: Monitored Anesthesia Care Patient Profile: Last Colonoscopy: none. The patient's first colonoscopy is today. This is a 57 year old male. Complications: No immediate complications. Procedure: Pre-Anesthesia Assessment: - Prior to the procedure, a History and Physical was performed, and patient medications and allergies were reviewed. The patient's tolerance of previous anesthesia was also reviewed. The risks and benefits of the procedure and the sedation options and risks were discussed with the patient. All questions were answered, and informed consent was obtained. Prior Anticoagulants: The patient has taken no anticoagulant or antiplatelet agents. ASA Grade Assessment: Per anesthesia. After reviewing the risks and benefits, the patient was deemed in satisfactory condition to undergo the procedure. After I obtained informed consent, the scope was passed under direct vision. Throughout the procedure, the patient's blood pressure, pulse, and oxygen saturations were monitored continuously. The Colonoscope was introduced through the anus and advanced to the terminal ileum. The colonoscopy was performed without difficulty. The patient tolerated the procedure well. The quality of the bowel preparation was good. Scope In: 10:31:16 AM Scope Withdrawal Time 0 hours 11 minutes 42 seconds Scope Out: 10:48:13 AM Total Procedure Duration Time 0 hours 16 minutes 57 seconds Findings: Hemorrhoids were found on perianal exam. Non-bleeding internal hemorrhoids were found. The hemorrhoids were Grade I (internal hemorrhoids that do not prolapse). A less than 5 mm polyp was found in the cecum. The polyp was sessile. The polyp was removed with a cold biopsy forceps. Resection and retrieval were complete. Two random biopsies were obtained with cold forceps for histology in a targeted manner in the rectum and in the sigmoid colon. The terminal ileum appeared normal. Impression: - Hemorrhoids found on perianal exam. - Non-bleeding internal hemorrhoids. - One less than 5 mm polyp in the cecum, removed with a cold biopsy forceps. Resected and retrieved. - The examined portion of the ileum was normal. - Two random biopsies were obtained in the rectum and in the sigmoid colon. Recommendation: - Discharge patient to home. - Resume previous diet. - Continue present medications. - Await pathology results. - Repeat colonoscopy in 5 years for surveillance based on pathology results. Procedure Code(s): --- Professional --- 15958, Colonoscopy, flexible; with biopsy, single or multiple Diagnosis Code(s): --- Professional --- K64.0, First degree hemorrhoids D12.0, Benign neoplasm of cecum R10.84, Generalized abdominal pain K52.9, Noninfective gastroenteritis and colitis, unspecified R63.4, Abnormal weight loss CPT copyright 2021 [employer]. All rights reserved. The codes documented in this report are preliminary and upon hydroelectric plant structural engineer review may be revised to meet current compliance requirements. MD Tracey Martins MD 07/01/2023 11:02:37 AM This report has been signed electronically. Number of Addenda: 0 Note Initiated On: 07/01/2023 10:29 AM
--- NOTE | 2023-07-01 11:03 | OP.CCLET_ITS ---
07/01/2023 No Primary Care Physician Re : Colonoscopy procedure for Nitin Pierre Dear Care Physician This procedure was performed on Saturday, July 01, 2023. My impressions and recommendations are as follows: Impressions : - Hemorrhoids found on perianal exam. - Non-bleeding internal hemorrhoids. - One less than 5 mm polyp in the cecum, removed with a cold biopsy forceps. Resected and retrieved. - The examined portion of the ileum was normal. - Two random biopsies were obtained in the rectum and in the sigmoid colon. Recommendations : - Discharge patient to home. - Resume previous diet. - Continue present medications. - Await pathology results. - Repeat colonoscopy in 5 years for surveillance based on pathology results. My findings are described in the full procedure note, which is enclosed. If I can be of further assistance, please feel free to contact me at Doctor phone number(s): , Work: . Sincerely, MD Tracey Martins MD 07/01/2023 11:02:37 AM This report has been signed electronically.
== END 2023-07-01 11:37 | disposition home or self-care (01) ==
LOC: EN 09:12 → AC 09:13
PROVIDERS: PCP Internal Medicine; Referring Provider Internal Medicine; Visit Provider Surgery
PROC: 0DJD8ZZ Inspection of Lower Intestinal Tract, Via Natural or Artificial Opening Endoscopic (ICD-10-PCS; CPT 45378; principal; 2023-07-01 10:40)
DX: K29.50 Unspecified chronic gastritis without bleeding (principal); D12.0 Benign neoplasm of cecum; K52.9 Noninfective gastroenteritis and colitis, unspecified; I10 Essential (primary) hypertension; Z80.0 Family history of malignant neoplasm of digestive organs; K64.0 First degree hemorrhoids; R12 Heartburn; R63.4 Abnormal weight loss; M54.9 Dorsalgia, unspecified; R10.84 Generalized abdominal pain; G89.29 Other chronic pain; K22.89 Other specified disease of esophagus; K31.89 Other diseases of stomach and duodenum; Z68.27 Body mass index [BMI] 27.0-27.9, adult
CPT/HCPCS: 43239; 45380; 88305; 88313; J7120; J2405

== ENCOUNTER → 2023-07-10 | Outpatient (CLI) | payer SELFPAY ==
[2023-07-10 12:15] LABS: Erythrocyte Sedimentation Rate 32 mm/hr (0-20)
[2023-07-10 12:30] LABS: ALB/GLOB Ratio 0.8 RATIO (0.9-2.4); AST(SGOT) 17 U/L (15-37); Alanine Aminotransfer ALT/SGPT 32 U/L (16-61); Albumin, Serum 3.4 g/dL (3.2-5.0); Alkaline Phosphatase 50 U/L (45-117); Anion Gap 8 (5-15); BUN 19 mg/dL (7-18); BUN/Creat Ratio 25.8 RATIO (10-20); CRP < 2.90 mg/L (0.0-3.0); Calcium,Total 9.1 mg/dL (8.5-10.1); Chloride 104 mmol/L (98-107); Cholesterol 191 mg/dL (200); Creatinine, Serum 0.74 mg/dL (0.70-1.30); EST Glomerular Filtration Rate 117 mL/min (>60); Est Glom Filt Rate - Afr Amer 141 mL/min (>60); Globulin 4.5 g/dL (2.2-4.2); Glucose 96 mg/dL (74-106); High Density Lipoprotein 46 mg/dL; Potassium 3.8 mmol/L (3.5-5.1); Protein, Total 7.9 g/dL (6.4-8.2); Sodium Level 139 mmol/L (136-145); Triglycerides 121 mg/dL; Very Low Density Lipoprotein 24 mg/dL (5-40)
[2023-07-11 12:09] LABS: ANTINUCLEAR ANTIBODIES DIRECT Negative (Negative); Anti-Centromere B Ab <0.2 AI (0.0-0.9); Anti-Chromatin <0.2 AI (0.0-0.9); Anti-Jo <0.2 AI (0.0-0.9); Anti-Scleroderma-70 AB <0.2 AI (0.0-0.9); Anti-dsDNA Ab 1 IU/mL (0-9); RNP Ab <0.2 AI (0.0-0.9); SJOGREN'S Anti-SS-A test 0.2 AI (0.0-0.9); SJOGREN'S Anti-SS-B test < 0.2 AI (0.0-0.9); Smith Ab <0.2 AI (0.0-0.9)
== END | disposition home or self-care (01) ==
LOC: BIMLAB 08:57
PROVIDERS: PCP Internal Medicine; Referring Provider Internal Medicine; Visit Provider Internal Medicine
DX: Z13.6 Encounter for screening for cardiovascular disorders (principal); R10.9 Unspecified abdominal pain; G89.29 Other chronic pain
CPT/HCPCS: 36415; 80053; 80061; 85652; 86038; 86140; 86225; 86235

== ENCOUNTER → 2023-07-16 | Outpatient (CLI) | payer SELFPAY ==
[2023-07-18 16:09] LABS: Lyme IGG CIA Positive (Negative); Lyme IGM CIA Negative (Negative); Lyme Scn Total Ab w/Rflx Positive (Negative)
== END | disposition home or self-care (01) ==
LOC: BIMLAB 12:25
PROVIDERS: PCP Internal Medicine; Visit Provider Internal Medicine
DX: R10.9 Unspecified abdominal pain (principal); G89.29 Other chronic pain
CPT/HCPCS: 36415; 86618